=== PATIENT | female | born 1995 | race Caucasian/White ===

== ENCOUNTER 2022-09-24 15:16 | Outpatient (CLI) | payer MEDICAID, SELFPAY | END 2022-09-24 15:17 | disposition home or self-care (01) | LOC: AMB 09-25 09:58 | PROVIDERS: Visit Provider Family Medicine | DX: F29 Unspecified psychosis not due to a substance or known physiological condition (principal); R10.9 Unspecified abdominal pain | CPT/HCPCS: A0425; A0427 ==

== ENCOUNTER 2022-09-24 16:18 | Emergency (ER) | payer MEDICAID, SELFPAY ==
[2022-09-24] VITALS (62 sets, daily range): BP systolic 92–142; BP diastolic 57–96; PULSE 79–128; RESP 12–25; TEMP 36.3; O2SAT 94–100
--- NOTE | 2022-09-24 16:30 | ED.PSYCH ---
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 (Auto) 0.80 (0.00-0.90) K/UL Eos # (Auto) 0.12 (0.00-0.50) K/uL Baso # (Auto) 0.03 (0.00-0.30) K/uL VBG pH 7.381 (7.32-7.43) VBG pCO2 42 (40-50) mmHG VBG pO2 150.0 H (25-47) mmHG VBG HCO3 25 (21-28) mmol/L Sodium 138 (135-149) mmol/L Potassium 3.7 (3.6-5.1) mmol/L Chloride 106 (96-114) mmol/L Carbon Dioxide 23 (20-32) mmol/L BUN 13 (5-24) mg/dL Creatinine 0.6 (0.5-1.5) mg/dL Estimated GFR 128 ml/min Glucose 112 (60-115) mg/dL Lactate 1.9 (0.5-1.9) mmol/L Calcium 9.4 (8.4-10.6) mg/dL Total Bilirubin 0.7 (0.1-1.5) mg/dL AST 20 (12-35) U/L ALT 16 (4-35) U/L Alkaline Phosphatase 74 (40-150) U/L Total Protein 7.6 (6.0-8.3) g/dL Albumin 4.5 (3.3-5.0) g/dL Lipase 59 (23-300) U/L TSH 5.880 H (0.270-4.200) uIU/mL Free T4 1.63 (0.70-1.85) ng/dL Urine Color Yellow (Yellow) Urine Appearance Clear (Clear) Urine pH 6.5 (5.0-8.5) Ur Specific [place] 1.025 (1.000-1.030) Urine Protein Trace A (Negative) Urine Glucose (UA) Negative (Negative) Urine Ketones Negative (Negative) Urine Blood Negative (Negative) Urine Nitrite Negative (Negative) Urine Bilirubin Negative (Negative) Urine Urobilinogen 0.2 (0.2-1.0) Ur Leukocyte Esterase Negative (Negative) Urine RBC 0-2 (0-2) Urine WBC 0-2 (0-5) Ur Squamous Epith Cells Few (None-Few) Urine Bacteria Moderate A (None) Urine Mucus Few A (None) Urine HCG, Qual Negative (Negative) Salicylates < 1.0 L (1.0-10) mg/dL Urine Opiates Screen Negative (Negative) Ur Oxycodone Screen Negative (Negative) Urine Methadone Screen Negative (Negative) Ur Propoxyphene Screen Negative (Negative) Acetaminophen < 10.0 L (10.0-30.0) ug/mL Ur Barbiturates Screen Negative (Negative) Ur Phencyclidine Scrn Negative (Negative) Ur Amphetamines Screen Negative (Negative) U Methamphetamines Scrn POSITIVE A* (Negative) U Benzodiazepines Scrn Negative (Negative) Urine Cocaine Screen Negative (Negative) U Marijuana (THC) Screen POSITIVE A* (Negative) Ur Drug Screen Comment See Note Ethyl Alcohol < 0.01 L (0.01-0.03) % <Anjel Pandya MD - Last Filed: 09/25/22 21:04> ECG Data Attestation: I personally reviewed and interpreted this ECG as follows: (Sinus tachycardia, 124 beats per minute. Artifact in lead V1. Incomplete right bundle branch block. Nonspecific T-wave changes. Machine read calls pulmonary disease pattern.) <Luanne Roman MD - Last Filed: 09/24/22 22:13> ECG interpretation date: 09/24/22 <Luanne Roman MD - Last Filed: 09/24/22 22:13> ECG interpretation time: 17:01 <Luanne Roman MD - Last Filed: 09/24/22 22:13> Prior ECG tracings: not available for review <Luanne Roman MD - Last Filed: 09/24/22 22:13> Discharge Plan Discharge Clinical Impression: Acute anxiety <Luanne Roman MD - Last Filed: 09/24/22 22:13> Patient Disposition: Home, Self-Care <Luanne Roman MD - Last Filed: 09/24/22 22:13> Condition: Improved <Luanne Roman MD - Last Filed: 09/24/22 22:13> Instructions: Anxiety (ED) <Luanne Roman MD - Last Filed: 09/24/22 22:13> Additional Instructions: Follow up as per Psych. <Luanne Roman MD - Last Filed: 09/24/22 22:13> Activity Level: Activity as Tolerated <Luanne Roman MD - Last Filed: 09/24/22 22:13> Activity as Tolerated <Cecilia Jordan MD - Last Filed: 09/26/22 14:57> Activity as Tolerated <Verenice Randolph MD - Last Filed: 10/03/22 12:20> Activity as Tolerated <Anjel Pandya MD - Last Filed: 09/25/22 21:04> Discharge Diet: Regular <Luanne Roman MD - Last Filed: 09/24/22 22:13> Regular <Cecilia Jordan MD - Last Filed: 09/26/22 14:57> Regular <Verenice Randolph MD - Last Filed: 10/03/22 12:20> Regular <Anjel Pandya MD - Last Filed: 09/25/22 21:04> Follow Up/Referrals: Provider,Not a Local [Primary Care Provider] - <Luanne Roman MD - Last Filed: 09/24/22 22:13> Stand Alone Forms: [facility] Info Instructions <Luanne Roman MD - Last Filed: 09/24/22 22:13>
[2022-09-24 16:35] LABS: HCO3 VBG 25 mmol/L (21-28); Lactate* 1.9 mmol/L (0.5-1.9); PCO2 VBG 42 mmHG (40-50); pH VBG 7.381 (7.32-7.43)
[2022-09-24] MEDS: OLANZapine 5 MG/ML inj IVP (16:35)
[2022-09-24 16:38] LABS: Basophils Absolute Auto 0.03 K/uL (0.00-0.30); Basophils Percent Auto 0.3 % (0.0-3.0); Eosinophils Absolute Auto 0.12 K/uL (0.00-0.50); Eosinophils Percent Auto 1.3 % (0.0-7.0); Hematocrit 39.2 % (33.0-51.0); Hemoglobin* 13.4 gm/dL (12.0-16.0); Immature Granulocytes Abs Auto 0.02 K/uL (0.00-0.30); Immature Granulocytes Pct Auto 0.2 %; Lymphocytes Absolute Auto 2.83 K/uL (0.90-2.90); Lymphocytes Percent Auto 30.4 % (20-44); Mean Corpuscular HGB Conc 34 gm/dL (32-36); Mean Corpuscular Hemoglobin 31 pg (26-34); Mean Corpuscular Volume 89 fL (80-100); Monocytes Percent Auto 8.5 % (0.0-11.0); Neutrophils Absolute Auto 5.52 K/uL (1.7-7.0); Neutrophils Percent Auto 59.3 % (42.0-72.0); Platelet Count* 328 K/uL (140-440); RDW Coefficient of Variation % 11.7 % (11.5-15.5); Red Blood Count 4.39 m/uL (4.00-5.20); White Blood Count* 9.31 K/uL (4.50-11.00)
[2022-09-24 16:39] LABS: Slide Review Reflex No
[2022-09-24 16:46] LABS: Appearance Urine Clear (Clear); Bilirubin Urine Negative (Negative); Blood Urine Negative (Negative); Color Urine Yellow (Yellow); Glucose Urine Negative (Negative); Ketones Urine Negative (Negative); Leukocyte Esterase Urine Negative (Negative); Nitrite Urine Negative (Negative); Protein Urine Trace (Negative); Specific Gravity Urine 1.025 (1.000-1.030); Urobilinogen Urine 0.2 (0.2-1.0); pH Urine 6.5 (5.0-8.5)
[2022-09-24 16:52] LABS: Albumin* 4.5 g/dL (3.3-5.0); Chloride* 106 mmol/L (96-114)
[2022-09-24 16:53] LABS: Bacteria Urine Moderate; Mucus Urine Few; Potassium* 3.7 mmol/L (3.6-5.1); RBC Urine 0-2 (0-2); Sodium* 138 mmol/L (135-149); Squamous Epithelial Cell Urine Few (None-Few); Ur HCG Qualitative* Negative (Negative); WBC Urine 0-2 (0-5)
[2022-09-24 16:55] LABS: Alkaline Phosphatase* 74 U/L (40-150); Aspartate Amino Transferase* 20 U/L (12-35); Bilirubin Total* 0.7 mg/dL (0.1-1.5); Blood Urea Nitrogen* 13 mg/dL (5-24); Carbon Dioxide* 23 mmol/L (20-32); Creatinine* 0.6 mg/dL (0.5-1.5); Estimated Glomerular Filt Rate 128 ml/min; Total Protein* 7.6 g/dL (6.0-8.3)
[2022-09-24 16:56] LABS: Alanine Aminotransferase* 16 U/L (4-35); Calcium* 9.4 mg/dL (8.4-10.6); Glucose* 112 mg/dL (60-115); Lipase* 59 U/L (23-300)
[2022-09-24 16:57] LABS: Cannabinoid Screen Urine POSITIVE (Negative); Cocaine Screen Urine Negative (Negative); Methamphetamines Screen Urine POSITIVE (Negative); Phencyclidine Screen Urine Negative (Negative)
[2022-09-24 16:58] LABS: Amphetamine Screen Urine Negative (Negative); Barbiturate Screen Urine Negative (Negative); Benzodiazepines Screen Urine Negative (Negative); Methadone Screen Urine Negative (Negative); Opiate Screen Urine Negative (Negative); Oxycodone Screen Urine Negative (Negative)
[2022-09-24 16:59] LABS: Acetaminophen* < 10.0 ug/mL (10.0-30.0); Ethanol* < 0.01 % (0.01-0.03); Salicylate* < 1.0 mg/dL (1.0-10)
[2022-09-24] MEDS: OLANZapine 5 MG/ML inj 10 MG IM (17:24)
[2022-09-24 18:32] LABS: Free T4 Free Thyroxine* 1.63 ng/dL (0.70-1.85)
[2022-09-24] MEDS: LORazepam 2 MG/ML inj IM (19:07)
[2022-09-24] MEDS: LORazepam 2 MG/ML inj IVP (19:16)
--- NOTE | 2022-09-24 20:17 | ED.NURSE ---
Report given to RADHIKA Parada. 1:1 sitter in room. VSS at this time.
--- NOTE | 2022-09-24 21:11 | PC.NURSE ---
restraints released. security in room RN 1:1 in room. patient asleep
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
[2022-09-25] VITALS (48 sets, daily range): BP systolic 95–118; BP diastolic 68–83; PULSE 68–110; RESP 10–36; TEMP 36.7; O2SAT 94–100
--- NOTE | 2022-09-25 04:08 | PC.NURSE ---
patient woke up, asked where she is, told she is in the hosptial and it is night time, given water, offered BR. patient then stated she feels tired and went back to sleep.
--- NOTE | 2022-09-25 07:20 | PC.NURSE ---
patient slept almost entire shift. security 1:1 for safety monitoring patient.
--- NOTE | 2022-09-25 07:34 | ED.NURSE ---
pt sleeping. stirring at times
--- NOTE | 2022-09-25 08:08 | ED.NURSE ---
Pt rousable to voice, moved from STAB 1 to RM 2 without issue.
--- NOTE | 2022-09-25 10:20 | ED.NURSE ---
Pt rousable to voice, cooperative with vitals being taken. Pt follows commands. Pt continues to be very drowsy.
--- NOTE | 2022-09-25 12:25 | ED.NURSE ---
Pt rousable to voice and light touch. Pt verbally responsive to information writer, information writer provided pt with meal and water.
--- NOTE | 2022-09-25 13:46 | ED.NURSE ---
Pt rousable to voice and light touch. Pt more alert at this time, able to hold conversation with advertising copy writer. Pt informed of date/time/location. Pt's IV not patent, removed by advertising copy writer, catheter intact. Pt did not eat any of her meal tray but did drink half a glass of water at advertising copy writer's request. Pt continues to be very drowsy.
--- NOTE | 2022-09-25 15:28 | ED.NURSE ---
Pt rousable to voice, cooperative with vital signs. Pt drank about half a glass of water at adjusto writer operator's request. Pt remains drowsy.
--- NOTE | 2022-09-25 19:04 | ED.NURSE ---
Digital Associate Media Director in to assess patient. She is asleep on cot, startles awake at writer producer's voice. Is agreeable to VS recheck. Patient offered use of restroom and she agrees. Patient able to pivot/stand from cot but appears unsteady on her feet. Wheelchair offered which patient accepts. Patient denies pain. Back from restroom. Patient again able to transfer from wheelchair to cot. Dr. Granda notified and in to speak with patient.
--- NOTE | 2022-09-25 20:23 | ED.NURSE ---
DEC assessment started. Pt alert and able to converse with laboratory specialist.
== END 2022-09-25 21:23 | disposition home or self-care (01) ==
PROVIDERS: Family Medicine; Emergency Provider Internal Medicine
DX: F41.9 Anxiety disorder, unspecified (principal)
CPT/HCPCS: 36415; 80053; 80143; 80179; 80306; 81001; 81025; 82077; 82803; 83605; 83690; 84439; 84443; 85025; 87086; 93005; 94761; 96372; 96374; 99283; 99284; 99291; J2060; S0166

== ENCOUNTER 2024-08-28 20:59 | Outpatient (CLI) | payer MEDICAID, SELFPAY | END 2024-08-28 21:00 | disposition home or self-care (01) | PROVIDERS: PCP Student in an Organized Health Care Education/Training Program; Visit Provider Nurse Practitioner | DX: G47.10 Hypersomnia, unspecified (principal); Z82.0 Family history of epilepsy and other diseases of the nervous system | CPT/HCPCS: 95810 ==